=== PATIENT | male | born 1975 | race Caucasian/White ===

== ENCOUNTER 2016-12-24 17:25 | Emergency (ER) | payer MEDICAID, MEDICARE ==
[2016-12-24 17:59] LABS: % BASOPHILS 0.4 % (0.0-2.0); % EOSINOPHILS 1.7 % (0.0-5.0); % LYMPHOCYTES 18.9 % (20.0-50.0); % MONOCYTES 9.5 % (2.0-10.0); % NEUTROPHILS 69.5 % (40.0-80.0); MEAN CELL VOLUME 92.3 fl (80-99); MEAN CORPUSCULAR HEMOGLOBIN 30.9 pg (26.0-30.0); MEAN CORPUSCULAR HGB CONC 33.4 pg (28.0-36.0); MEAN PLATELET VOLUME 8.2 fl; NEUTROPHILE ABSOLUTE 6.2 Th/cmm (1.8-8.0); RED BLOOD COUNT 5.65 Mil/cmm (4.30-5.70); RED CELL DISTRIBUTION WIDTH 13.1 % (11.5-20.0)
[2016-12-24 18:00] LABS: HEMATOCRIT 52.1 % (39.0-49.0); HEMOGLOBIN 17.4 gm/dL (13.2-17.3); WHITE BLOOD COUNT 8.9 Th/cmm (4.8-10.8)
[2016-12-24 18:01] LABS: PLATELET COUNT 182 Th/cmm (150-400)
[2016-12-24 18:15] LABS: ALB/GLOB RATIO 1.4 (1.0-1.8); ALKALINE PHOSPHATASE 122 U/L (34-104); ANION GAP 8.3 (7.0-16.0); BILIRUBIN,TOTAL 0.5 mg/dL (0.3-1.0); BUN - UREA NITROGEN 13 mg/dL (7-25); BUN/CREATININE RATIO 21.7; CALCIUM SERUM 9.5 mg/dL (8.6-10.3); CARBON DIOXIDE 27.3 mEq/L (21.0-31.0); CHLORIDE 105 mEq/L (98-107); CREATININE - SERUM 0.6 mg/dL (0.7-1.3); GLUCOSE 126 mg/dL (70-105); POTASSIUM SERUM 3.6 mEq/L (3.5-5.1); SGOT 21 U/L (13-39); SGPT/ALT 38 U/L (7-52); SODIUM SERUM 137 mEq/L (136-145)
[2016-12-24] MEDS ORDERED: Acetaminophen 500 MG TAB ONE (21:22)
--- NOTE | 2016-12-24 21:32 | ED Physician Chart ---
Chief Complaint/HPI - Patient Information Date Seen:: 12/24/16 Time Seen:: 21:29 Chief Complaint:: HEADACHE History of Present Illness:: THIS IS A CHRONICALLY ILL 41 YO PATIENT WHO STATES THAT HE HAS A HEADACHE. 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 HE DENIES FEVER, COUGH AND SORE THROAT. HE DENIES CHEST CONGESTION AND SOB. HE DENIES CHEST AND ABDOMINAL PAIN. HE DENIES HEAD TRAUMA. Allergies:: Allergies Allergy/AdvReac Type Severity Reaction Status Date / Time No Known Allergies Allergy Verified 12/24/16 17:51 Vitals:: Vital Signs - 8 hr 12/24/16 12/24/16 17:51 19:11 Temp 99.0 F HR 89 61 RR 17 16 BP 134/89 123/77 O2 Sat % 94 97 Historian:: Patient, Medical Records Review:: Nurse's Note Reviewed Review of Systems - Review of Systems General/Constitutional: No fever, No chills, No weight loss, No weakness, No diaphoresis, No edema, No loss of appetite Skin: No skin lesions, No rash, No bruising Head: Headache, No light-headedness Eyes: No loss of vision, No pain, No diplopia ENT: No earache, No nasal drainage, No sore throat, No tinnitus Neck: No neck pain, No swelling, No thyromegaly, No stiffness, No mass noted Cardio Vascular: No chest pain, No palpitations, No PND, No orthopnea, No edema Pulmonary: No SOB, No cough, No sputum, No wheezing GI: No nausea, No vomiting, No diarrhea, No pain, No melena, No hematochezia, No constipation, No hematemesis G/U: No dysuria, No frequency, No hematuria Musculoskeletal: No bone or joint pain, No back pain, No muscle pain Endocrine: No polyuria, No polydipsia Psychiatric: No prior psych history, No depression, No anxiety, No suicidal ideation Hematopoietic: No bruising, No lymphadenopathy Allergic/Immuno: No urticaria, No angioedema Neurological: No syncope, No focal symptoms, No weakness, No paresthesia, No headache, No seizure, No dizziness, No confusion, No vertigo Past Medical History - Past Medical History Past Medical History: CVA/TIA, Other (BRAIN SURGERY WITH PROPERTY PRESERVATION SPECIALIST SHUNT) Family History: None Social History: Non Smoker, No Alcohol, No Drug Use, Single, Care Facility Surgical History: other (BRAIN SURGERY) Psychiatricy History: Depression Medication: Reviewed Family Medical History - Family Member Mother History Unknown: Yes Physical Exam - Physical Examination General/Constitutional: Awake, Well-developed, well-nourished, Alert, No distress, GCS 15, Non-toxic appearing, Ambulatory Head: Atraumatic Eyes: Lids, conjuctiva normal, PERRL, EOMI Skin: Nl inspection, No rash, No skin lesions, No ecchymosis, Well hydrated, No lymphadenopathy ENMT: External ears, nose nl, Nasal exam nl, Lips, teeth, gums nl Neck: Nontender, Full ROM w/o pain, No JVD, No nuchal rigidity, No bruit, No mass, No stridor Respiratory: Nl effort/Exclusion, Clear to Auscultation, No Wheeze/Rhonchi/Rales Cardio Vascular: RRR, No murmur, gallop, rubs, NL S1 S2 GI: No tenderness/rebounding/guarding, No organomegaly, No hernia, Normal BS's, Nondistended, No mass/bruits, No McBurney tenderness : No CVA tenderness Extremities: No tenderness or effusion, Full ROM, normal strength in all extremities, No edema, Normal digits & nails Neuro/Psych: Alert/oriented, DTR's symmetric, Normal sensory exam, Normal motor strength, Judgement/insight normal, Mood normal, Normal gait, No focal deficits Misc: normal gait, Normal back, No paraspinal tenderness Labs/Radiology/EKG Results - Lab Results Results: Laboratory Tests 12/24/16 12/24/16 12/24/16 17:52 17:52 17:52 WBC 8.9 D RBC 5.65 Hgb 17.4 H D Hct 52.1 H D MCV 92.3 MCH 30.9 H MCHC Differential 33.4 RDW 13.1 Plt Count 182 D MPV 8.2 Neutrophils % 69.5 Lymphocytes % 18.9 L Monocytes % 9.5 Eosinophils % 1.7 Basophils % 0.4 PTT (Actin FS) 26.8 Sodium 137 Potassium 3.6 Chloride 105 Carbon Dioxide 27.3 Anion Gap 8.3 BUN 13 Creatinine 0.6 L Est GFR ( Amer) > 60.0 Est GFR (Non-Af Amer) > 60.0 BUN/Creatinine Ratio 21.7 Glucose 126 H Calcium 9.5 Total Bilirubin 0.5 AST 21 ALT 38 Alkaline Phosphatase 122 H Troponin I Total Protein 7.2 Albumin 4.2 Globulin 3.0 Albumin/Globulin Ratio 1.4 TSH RPR 12/24/16 12/24/16 12/24/16 17:52 17:52 17:52 WBC RBC Hgb Hct MCV MCH MCHC Differential RDW Plt Count MPV Neutrophils % Lymphocytes % Monocytes % Eosinophils % Basophils % PTT (Actin FS) Sodium Potassium Chloride Carbon Dioxide Anion Gap BUN Creatinine Est GFR ( Amer) Est GFR (Non-Af Amer) BUN/Creatinine Ratio Glucose Calcium Total Bilirubin AST ALT Alkaline Phosphatase Troponin I < 0.01 L Total Protein Albumin Globulin Albumin/Globulin Ratio TSH 1.64 RPR NONREACTIVE - Radiology Results Results: CT SCAN OF THE BRAIN = NAD ED Septic Shock - . Is Septic Shock (SBP<90, OR Lactate>4 mmol\L) present?: No - <6hrs of presentation: Vital Signs: Vital Signs - 8 hr 12/24/16 12/24/16 17:51 19:11 Temp 99.0 F HR 89 61 RR 17 16 BP 134/89 123/77 O2 Sat % 94 97 Reassessment (Disposition) - Diagnosis Diagnosis:: HEADACHE - Aftercare/Follow up Instructions Aftercare/Follow-Up Instructions:: Counseled pt regarding lab results/diagnosis & need follow up, Refer to Discharge Instructions, Counseled pt & family regarding lab results/diagnosis & need follow up - Patient Disposition Discharge/Transfer:: Home Condition at Disposition:: Improved ED Discharge Plan - Patient Disposition Admit/Discharge/Transfer: PT DISCHARGED HOME Condition at Disposition: Improved
--- NOTE | 2016-12-25 11:17 | Diagnostic Imaging Report ---
CT scan of the brain without intravenous contrast HISTORY headache, stroke/CVA Total DLP equals 817 CTDI equals 44.2 Axial sections were obtained from the base of the skull to the vertex. Prior exams are not available for comparison. The exam demonstrates extensive hypodensity with volume loss throughout the left temporal and parietal regions of the rain consistent with extensive encephalomalacia. There is moderate enlargement of the ventricular system. Ventricular shunt catheter tubing extends from the right occipital area. The tip is in the region of the anterior portion of the left lateral ventricle. No acute parenchymal abnormalities. No intracerebral hemorrhage. IMPRESSION: 1. Extensive encephalomalacia with volume loss throughout the left cerebral hemisphere. 2. Ventricular shunt catheter placement with the tip in the region of the anterior portion of the left lateral ventricle. 3. No acute abnormalities
--- NOTE | 2016-12-25 11:20 | Diagnostic Imaging Report ---
Portable chest x-ray HISTORY: Pain Allowing for a poor inspiration and portable technique, the heart size is normal. No focal pulmonary processes. Ventriculoperitoneal shunt tubing projects over the right chest. IMPRESSION: 1. No acute pulmonary processes
== END 2016-12-24 23:10 | disposition home or self-care (01) ==
LOC: ER 17:25
DX: R51 Headache (principal); Z86.73 Personal history of transient ischemic attack (TIA), and cerebral infarction without residual deficits
CPT/HCPCS: 36415-UA; 70450-TC; 71010-TC; 80053-TC; 84443-TC; 84484-TC; 85025-TC; 85730-TC; 86592-TC; Z7610

== ENCOUNTER 2018-04-05 23:22 | Emergency (ER) | payer MEDICARE, MEDICAID ==
--- NOTE | 2018-04-05 23:49 | ED Physician Chart ---
ED Chief Complaint/HPI - Patient Information Date Seen:: 04/05/18 Time Seen:: 23:26 Chief Complaint:: fever History of Present Illness:: THIS IS A CHRONICALLY ILL 43 YO STATUS POST BRAIN SURGERY WITH RIGHT SIDED WEAKNESS AND A SEIZURE PATIENT SENT TO THIS ER FOR AN EVALUATION AND TREATMENT OF HIS FEVER. HE HAS A HISTORY OF HYPERTENSION, PNEUMONIA, HIATAL HERNIA AND MENTALLY SLOW. Allergies:: Allergies Allergy/AdvReac Type Severity Reaction Status Date / Time No Known Allergies Allergy Verified 04/05/18 23:28 Vitals:: Vital Signs - 8 hr 04/05/18 23:25 Temp 98.9 F HR 94 RR 18 BP 99/66 O2 Sat % 94 Historian:: Medical Records Review:: Nurse's Note Reviewed, Old Chart Reviewed, Transfer documents Reviewed ED Review of Systems - Review of Systems General/Constitutional: Fever, No chills, No weight loss, No weakness, No diaphoresis, No edema, Loss of appetite Skin: No skin lesions, No rash, No bruising Head: No headache, No light-headedness Eyes: No loss of vision, No pain, No diplopia ENT: No earache, No nasal drainage, No sore throat, No tinnitus Neck: No neck pain, No swelling, No thyromegaly, No stiffness, No mass noted Cardio Vascular: No chest pain, No palpitations, No PND, No orthopnea, No edema Pulmonary: No SOB, No cough, No sputum, No wheezing GI: No nausea, No vomiting, No diarrhea, No pain, No melena, No hematochezia, No constipation, No hematemesis G/U: No dysuria, No frequency, No hematuria Musculoskeletal: No bone or joint pain, No back pain, No muscle pain Endocrine: No polyuria, No polydipsia Psychiatric: No prior psych history, No depression, No anxiety, No suicidal ideation Hematopoietic: No bruising, No lymphadenopathy Allergic/Immuno: No urticaria, No angioedema Neurological: No syncope, No focal symptoms, No weakness, No paresthesia, No headache, No seizure, No dizziness, No confusion, No vertigo ED Past Medical History - Past Medical History Obtainable: Yes Past Medical History: HTN, CVA/TIA, Dyslipidemia, Seizures, Dementia Family History: None Social History: Non Smoker, No Alcohol, No Drug Use, Care Facility Surgical History: 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 Head: Atraumatic Eyes: Lids, conjuctiva normal, PERRL, EOMI Skin: Nl inspection, No rash, No skin lesions, No ecchymosis, Well hydrated, No lymphadenopathy ENMT: External ears, nose nl, Nasal exam nl, Lips, teeth, gums nl Neck: Nontender, Full ROM w/o pain, No JVD, No nuchal rigidity, No bruit, No mass, No stridor Respiratory: Nl effort/Exclusion, Clear to Auscultation, No Wheeze/Rhonchi/Rales Cardio Vascular: RRR, No murmur, gallop, rubs, NL S1 S2 GI: No tenderness/rebounding/guarding, No organomegaly, No hernia, Normal BS's, Nondistended (ABDOMENT SLIGHTLY DISTENTED), No mass/bruits, No McBurney tenderness : No CVA tenderness Extremities: No tenderness or effusion, Full ROM, normal strength in all extremities, No edema (THERE IS BILATERAL EDEMA OF BOTH LOWER EXTREMITIES.), Normal digits & nails Neuro/Psych: Alert/oriented, DTR's symmetric, Normal sensory exam, Normal motor strength, Judgement/insight normal, Mood normal, Normal gait, No focal deficits (THE PATIENT HAS RIGHT SIDED WEAKNESS.) Misc: Normal back, No paraspinal tenderness ED Labs/Radiology/EKG Results - Radiology Results Results: CHEST X-RAY = NAD - EKG Interpretations EKG Time:: 23:36 Rate & Rhythm: RATE = 89 SINUS [place]: RIGHT AND NO ECTOPY SEEN. ED Assessment - Assessment General Assessment: FEVER ED Septic Shock - . 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
[2018-04-06 00:07] LABS: URINE SOURCE CLEAN C
[2018-04-06 00:10] LABS: URINE BILIRUBIN NEGATIVE (NEGATIVE); URINE BLOOD NEGATIVE (NEGATIVE); URINE GLUCOSE (UA) NEGATIVE (NEGATIVE); URINE KETONE NEGATIVE (NEGATIVE); URINE LEUKOCYTE ESTERASE NEGATIVE (NEGATIVE); URINE NITRATE NEGATIVE (NEGATIVE); URINE PROTEIN NEGATIVE (NEGATIVE); URINE UROBILINOGEN 0.2 E.U./dL (0.2 - 1.0)
[2018-04-06 00:13] LABS: ALB/GLOB RATIO 1.5 (1.0-1.8); ALKALINE PHOSPHATASE 111 U/L (34-104); ANION GAP 12.6 (7.0-16.0); BILIRUBIN,TOTAL 0.6 mg/dL (0.3-1.0); BUN - UREA NITROGEN 14 mg/dL (7-25); CALCIUM SERUM 8.6 mg/dL (8.6-10.3); CHLORIDE 102 mEq/L (98-107); CREATININE - SERUM 0.6 mg/dL (0.7-1.3); GFR AFRICAN-AMERICAN > 60.0 ml/min (>90); GFR NON AFRICAN-AMERICAN > 60.0 ml/min; GLUCOSE 109 mg/dL (70-105); POTASSIUM SERUM 3.6 mEq/L (3.5-5.1); SGOT 19 U/L (13-39); SGPT/ALT 32 U/L (7-52); SODIUM SERUM 137 mEq/L (136-145); TOTAL PROTEIN,SERUM 6.7 gm/dL (6.0-8.3)
[2018-04-06 00:15] LABS: INR 0.99 (0.5-1.4); PROTHROMBIN TIME (TEST) 10.3 SECONDS (9.5-11.5)
[2018-04-06 00:35] LABS: URINE CLARITY CLEAR (CLEAR); URINE COLOR YELLOW; URINE MICROSCOPIC INDICATED? YES
[2018-04-06 00:36] LABS: URINE EPITHELIAL CELLS NONE SEEN /lpf (FEW); URINE RBC NONE SEEN /hpf (0-5); URINE WBC 0-2 /hpf (0-5)
[2018-04-06 00:37] LABS: URINE BACTERIA FEW /hpf (NONE SEEN)
[2018-04-06] MEDS ORDERED: Sodium Chloride 0.9% 1,000 ML IV ONE (01:09)
[2018-04-06 06:59] LABS: WHITE BLOOD COUNT 7.5 Th/cmm (4.8-10.8)
[2018-04-06 07:00] LABS: % NEUTROPHILS 79.5 % (40.0-80.0); HEMATOCRIT 50.2 % (41.0-60); HEMOGLOBIN 16.9 gm/dL (12-16); MEAN CORPUSCULAR HEMOGLOBIN 30.7 pg (26.0-30.0); MEAN CORPUSCULAR HGB CONC 33.7 pg (28.0-36.0); MEAN PLATELET VOLUME 8.5 fl; PLATELET COUNT 191 Th/cmm (150-400); RED BLOOD COUNT 5.51 Mil/cmm (4.30-5.70); RED CELL DISTRIBUTION WIDTH 12.8 % (11.5-20.0)
[2018-04-06 07:01] LABS: % BASOPHILS 0.9 % (0.0-2.0); % EOSINOPHILS 1.5 % (0.0-5.0); % LYMPHOCYTES 13.3 % (20.0-50.0); % MONOCYTES 4.8 % (2.0-10.0); BASOPHILE ABSOLUTE 0.1 Th/cumm (0-0.2); EOSINOPHILE ABSOLUTE 0.1 Th/cmm (0.1-0.4); MONOCYTE ABSOLUTE 0.4 Th/cmm (0.3-1.0); NEUTROPHILE ABSOLUTE 5.9 Th/cmm (1.8-8.0)
--- NOTE | 2018-04-06 09:10 | Diagnostic Imaging Report ---
CHEST X-RAY: AP view INDICATION: Cough COMPARISON: 12/24/2016 FINDINGS: Shunt catheter is exam seen on the right side. No focal consolidation or effusions. Heart size is normal. There is mild scoliosis. IMPRESSION: No focal airspace consolidation identified.
== END 2018-04-06 02:45 ==
LOC: ER 23:22
DX: G40.909 Epilepsy, unspecified, not intractable, without status epilepticus (principal); R50.9 Fever, unspecified; I10 Essential (primary) hypertension; E88.09 Other disorders of plasma-protein metabolism, not elsewhere classified; Z98.2 Presence of cerebrospinal fluid drainage device; Z86.73 Personal history of transient ischemic attack (TIA), and cerebral infarction without residual deficits
CPT/HCPCS: 99285; 96374; 71045; 93005; 84484; 36415; 84443; 85025; 85610; 85730; 81001; 80185; 80053; 87081; 87040 ×2; J0696; J7040